=== PATIENT | female | born 1950 | race Caucasian/White ===

== ENCOUNTER 2018-01-04 09:29 | Emergency (ER) | payer OTHER ==
[~2018-01-04] VITALS: Ht 162.6 cm; Wt 54.5 kg
[2018-01-04 11:39] VITALS: BP 132/81
== END 2018-01-04 11:39 | disposition home or self-care (01) ==
LOC: EMS 09:30
DX: S90.121A Contusion of right lesser toe(s) without damage to nail, initial encounter (principal); I10 Essential (primary) hypertension; M20.11 Hallux valgus (acquired), right foot; M19.90 Unspecified osteoarthritis, unspecified site; W20.8XXA Other cause of strike by thrown, projected or falling object, initial encounter; Y93.89 Activity, other specified; Y92.89 Other specified places as the place of occurrence of the external cause; Y99.8 Other external cause status
CPT/HCPCS: 10060; 99284